=== PATIENT | male | born 1935 | race Two or more races ===

== ENCOUNTER 2016-08-15 10:07 | Emergency (ER) | payer OTHER ==
--- NOTE | 2016-08-15 10:32 | CPEKG ---
Heart Rate: 54 RR Interval: 1111 P-R Interval: 208 QRSD Interval: 90 QT Interval: 448 QTC Interval: 425 P [place]: 34 QRS [place]: -37 T Wave [place]: 9 EKG Severity - OTHERWISE NORMAL ECG - EKG Impression: SINUS RHYTHM EKG Impression: LEFT AXIS DEVIATION Electronically Signed By: Tono Arellano 16-Aug-2016 13:15:08
--- NOTE | 2016-08-15 10:45 | EDPHY ---
H & P Stated Complaint: right sided pain monday am, right leg pain," pacer issues." Time Seen by Provider: 08/15/16 10:43 - Personal History Current Tetanus/Diphtheria Vaccine: Yes Current Tetanus Diphtheria and Acellular Pertussis (TDAP): Yes Tetanus Vaccine Date: 2005 - Medical/Surgical History Hx Asthma: No Hx Chronic Respiratory Disease: No Hx Diabetes: No Hx Cardiac Disease: Yes Hx Renal Disease: No Hx Cirrhosis: No Hx Alcoholism: No Hx HIV/AIDS: No Hx Splenectomy or Spleen Trauma: No Other PMH: [id number] chamber,prostate ca, minto. [id number], 2015,prostate, tonsilectomy,1 stent and appy, shingles, MRSA on knee 2006., ablation for a fib - Social History Smoking Status: Never smoked Constitutional: Initial Vital Signs Temperature (C) 36.4 C 08/15/16 10:20 Heart Rate 57 L 08/15/16 10:20 Respiratory Rate 16 08/15/16 10:20 Blood Pressure 148/75 H 08/15/16 10:20 O2 Sat (%) 96 08/15/16 10:20 O2 Delivery Mode Room Air Allergies/Adverse Reactions: No Known Allergies Allergy (Verified 01/01/16 14:54) Home Medications: Medication Instructions Recorded NK [No Known Home Meds] 08/15/16 Medical Decision Making - Diagnostics Imaging Results: Imaging Impressions Extremity Venous Study 08/15/16 10:58 Impression: No deep venous thrombosis right leg. Findings and recommendations discussed with Emergency Department physician, Patricio Byrnes MD at 12:15 hour, 08/15/2016. Final report concurs with initial preliminary interpretation. Imaging: Discussed imaging studies w/ call center dispatcher Radiologist ED Course/Re-evaluation: CHIEF COMPLAINT: Right leg and neck swelling HISTORY OF PRESENT ILLNESS: This patient is an 80-year-old male with history of atrial tachycardia with pacemaker in place who presents to the Emergency Department complaining of right calf pain over the past two months, worsening over time. He also reports subjective right-sided neck swelling. He has no additional complaints. Denies dyspnea, chest pain, or fever or chills. No history of DVT or PE. REVIEW OF SYSTEMS: A 10 point review of systems was performed and is negative with the exception of the elements mentioned in the history of present illness. PHYSICAL EXAM: HR 57, BP 148/75, O2 Sat 96%, RR 16. Temp noted at 36.4C. General Appearance: Alert, well hydrated, appropriate, and non-toxic appearing. Head: Atraumatic without scalp tenderness or obvious injury Eyes: Pupils equal, round, reactive to light and accommodation, EOMI, no trauma , no injection. Ears: Clear bilaterally, no perforation, normal landmarks Nose: Atraumatic, no rhinorrhea, clear. Throat: There is no erythema or exudates, no lesions, normal tonsils, mucus membranes moist. Neck: Supple, 2+ carotid upstroke, nontender, no lymphadenopathy. Respiratory: No retractions, no distress, no wheezes, and no accessory muscle use. Lungs are clear to auscultation bilaterally. Cardiovascular: Regular rate and rhythm, no murmurs, rubs, or gallops. Bilateral carotid, radial, dorsalis pedis, and posterior tibial pulses intact. Good capillary refill all extremities. Gastrointestinal: Abdomen is soft, nontender, non-distended, no masses, no rebound, no guarding, no peritoneal signs. Musculoskeletal: Normal active ROM of all extremities, atraumatic. Mildly edematous right calf, soft. Normal appearing left lower leg. Neurological: Alert, appropriate, and interactive. The patient has normal DTRs and non-focal cranial nerves, motor, sensory, and cerebellar exam. Skin: No rashes, good turgor, no nodules on palpation. Past medical history: Atrial tachycardia, pacemaker in place. Dyslipidemia. Most recent cardiac catheterization in 02/2016 revealed minimal CAD with LAD. Prior medical records were reviewed by myself including admission on 02/06/2016 for back/chest pain. Past surgical history: Cardiac catheterizations with stenting. Social history: No tobacco use. Drinks alcohol rarely. DIAGNOSTICS/PROCEDURES/CRITICAL CARE TIME: EKG INTERPRETATION: The 12 lead EKG was interpreted by myself: Sinus rhythm, rate 54; left axis deviation. See hard copy and/or "tracemaster" electronic copy for interpretation. DIFFERENTIAL DIAGNOSIS: The differential diagnosis for the patient's leg swelling included but was not limited to hypoalbuminemia, congestive heart failure, cor pulmonale, venous stasis, trauma, and DVT. MEDICAL DECISION MAKIN-year-old male with cardiac pacemaker in place who presents with complaint of right calf pain and swelling which apparently has been worsening over the past month. He also reports subjective right-sided facial and neck swelling. On exam , is right calf is mildly edematous. There is no perceived swelling to his neck or face. Will proceed with US of the RLE. 1215: US is negative per Dr. Kamar Mehta, radiologist. I discussed ultrasound findings with the patient. He agrees to follow-up with his PCP this week for any persistent complaints. He is given customary return precautions and will be discharged home in good condition. Departure - Departure Disposition: Home, Routine, Self-Care Clinical Impression: Right calf pain Condition: Good Instructions: Leg Edema (ED) Additional Instructions: 1. Follow-up with your primary care provider for further evaluation this week if you continue to experience swelling to your leg or face. 2. Follow-up with Dr. Blanco for evaluation of your pacemaker as we discussed. 3. Return to the Emergency Department immediately with shortness of breath, chest pain, increased pain or swelling, or for other serious concerns. Referrals: Zelda Herrera MD [Primary Care Provider] - As per Instructions Coorna Blanco MD [Medical Doctor] - As per Instructions
[2016-08-15 13:19] VITALS: BP 144/88; PULSE 56; RESP 18; TEMP 98.2; O2SAT 95
== END 2016-08-15 13:19 | disposition home or self-care (01) ==
DX: M79.661 Pain in right lower leg (principal); I25.10 Atherosclerotic heart disease of native coronary artery without angina pectoris; Z85.46 Personal history of malignant neoplasm of prostate; Z95.0 Presence of cardiac pacemaker; Z95.5 Presence of coronary angioplasty implant and graft

== ENCOUNTER → 2016-10-05 | Outpatient (CLI) | payer OTHER | LOC: FIMAGING 07:54 | PROVIDERS: ATTEND Specialist | DX: C61 Malignant neoplasm of prostate (principal) | CPT/HCPCS: 78306; A9503 ==

== ENCOUNTER 2016-10-20 11:36 | Observation (INO) | payer OTHER ==
--- NOTE | 2016-10-19 16:57 | GHP ---
[f rep st] PREOP HISTORY AND PHYSICAL ADMISSION DIAGNOSIS: Prostate cancer with urinary obstruction. HISTORY: This is a gentleman who is 80 years old who underwent CyberKnife treatment for a Grenola score 7 prostate cancer in 2014. His PSA subsequently has gone at a much higher level and presently is at 30.4. He has a bone scan that reveals no metastatic pathology at the present time. He has had an ultrasound that shows the prostate has a volume of 37.9 g, a PSA density of 0.80 , an intravesical lobe and then also possibility of a small bladder neck pathology. At the present time, he is admitted for a TURP. I tried to inform him that I anticipate him having prostate cancer on this assessment because of the elevated PSA and his history, and I have elected not to do any biopsies preoperatively because of his history. Indications, complications, expectations and risks of the surgery have been discussed. I tried to answer his questions to the best of my ability. PAST MEDICAL HISTORY: He has had BPH with hematuria and pacemaker surgically as well as prostate treatment. MEDICATIONS: Include aspirin. ALLERGIES: None. FAMILY HISTORY: Positive for diabetes, hypertension, kidney stones, and prostate cancer. SOCIAL HISTORY: Alcohol consumption is [id number]. A nonsmoker, . Immunizations up to date for influenza and PCV. REVIEW OF SYSTEMS: Negative for cardiac, respiratory, GI, and endocrine. PHYSICAL EXAMINATION: VITAL SIGNS: Stable. CHEST: Clear. HEART: Regular rate and rhythm. ABDOMEN: Normal. No organomegaly, rebound, or guarding. EXTREMITIES: Lower extremities are normal. : His prostate is enlarged and firm, more on the right than the left. LYMPHATICS: He has no lymphadenopathy. NEUROLOGIC: Oriented x3. PSA values have been at 20 in 2012, nadired to 2.3 in April 2014, and in September 2016, has been up to 30.4. At the present time, he is admitted for TUR of the prostate. PLAN: Indications and complications and all have been discussed. Written and verbal consent was obtained. He will be admitted for the above procedure. Copy requested to: Dr. Felipe Rodriguez #: [id number]/MODL MTDD
--- NOTE | 2016-10-20 11:34 | PDHPUP ---
History & Physical Update H&P update statement: This history and physical update is based on an assessment of the patient which was completed after admission or registration (within 24 hours), but prior to the surgery/procedure. H&P update: H&P reviewed & patient examined, no change in patient's condition since H&P completed
[~2016-10-20 11:36] MED LIST: ceFAZolin 2 GM/DEXTROSE 100 ML IV ONE
[2016-10-20] MEDS ORDERED: LR 1,000 ML IV ONE (12:01)
--- NOTE | 2016-10-20 12:47 | GCON ---
[f rep st] CONSULTATION CARDIOVASCULAR CONSULTATION DATE OF CONSULTATION: 10/20/2016 REFERRING PHYSICIAN: Dr. Joseph The patient is a gentleman, who has known coronary disease with myocardial infarctions x2 in 1987. He had a stent subsequently in his left anterior descending artery. He, in 2014, received a dual pacemaker and the data is in the chart about his pacemaker. It has been followed in clinic and has been doing fine. He had a coronary angiogram on 02/08/2016, which showed the left main coronary was normal. The LAD had intimal disease present. His mid stent had excellent flow, with no obstruction. Circumflex was showing intimal disease. Right coronary artery had mild irregularities and 10% stenosis. He has done very well. He is not having chest pain, jaw pain, arm pain. He has no orthopnea, PND, dyspnea exertion. No pleuritic chest pain. He has no fever, chills, or cough. He is not having syncope or near syncope. He is not having hot swollen joints or major rashes. He is having no history at this time , of cough, pleuritic chest pain, hemoptysis. No hematemesis. He is active at his house. He is able to do everything he wants to do, and has no other issues. CARDIAC RISK FACTORS: He has hyperlipidemia. He has hypertension. He has no family history of premature coronary artery disease. He has no diabetes mellitus. He has no history of hyperuricemia or obesity. PHYSICAL EXAM: VITAL SIGNS: Blood pressure has been in the range of 135/80. Heart rate is 65 and regular. Respiratory rate is 12. He is afebrile. HEENT: Pupils are equal and reactive. Mucous membranes and mouth moist. NECK: Supple. CARDIOVASCULAR: S1, S2. Soft systolic murmur, left sternal border. No diastolic murmur. No S3, no S4, no rubs. He has a pacemaker in place, and the pocket is not causing any issues. PULMONARY: Reveals rhonchi. No rales, wheezing, or dullness. CVA: No tenderness. ABDOMEN: Soft and nontender, without masses. EXTREMITIES: Show no edema or inflammation, or ulceration. ASSESSMENT AND PLAN: 1. Coronary disease. 2. Pacemaker. 3. Dyslipidemia. 4. Hypertension. The patient is going to have surgery with Dr. Joseph today. The patient is having absolutely no cardiovascular symptoms. He has no angina. He has no diminution of exercise tolerance. He has no orthopnea, PND, dyspnea on exertion. He has no weight gain. He has no edema. He is not having neurologic complaints or palpitations. He is not lightheaded, dizzy, having focal neurologic problems. I have offered him preoperative evaluation with a stress imaging study and/or an echocardiographic study. He does not want to proceed with those tests. I do not see any indication he needs those tests done at this time. I think he will do very well with surgery. However, he is being done at increased risk of surgery because of his coronary disease, and he is aware of that. He and his and I have specifically reviewed the risk of stroke, , myocardial infarction, and he is well aware , as is his , that any of those outcomes are possible with today's procedure , and he accepts those risks and wants to proceed. I think he will do very well , but I know that he understands the options and he wants to go ahead at this time, so I am clearing him for surgery. I think he will do superbly. He is coming into surgery with excellent cardiovascular strength and condition. His labs have been recently checked, and his blood sugar was elevated on a random blood sugar of 120. His creatinine is excellent. Liver function tests are excellent. His lipids are a little high at 213 total cholesterol, and an LDL of 147. He and I have reviewed his lipid management in the past and we will do so again. He is going to see me after his surgery. I have answered all his questions, and I have written a note to clear him for surgery. /[id number]/MODL MTDD
--- NOTE | 2016-10-20 13:10 | PDANEPAE ---
ANE History of Present Illness 80 year old male w/ PMHx of A.fib s/p ablation, pacemaker (replaced in 2016), OR (1987; cardiac stent in 2007), recent reports of atrial tachycardia w/ RVR ( provided cardiac clearance today by Dr. Blanco) and prostate cancer / BPH presents for TURP. ANE Past Medical History - Cardiovascular History Hx Hypertension: Yes Hx Arrhythmias: Yes Hx Chest Pain: No Hx Coronary Artery / Peripheral Vascular Disease: Yes Hx CHF / Valvular Disease: No Hx Palpitations: No Cardiovascular History Comment: OR 1987. STENT 11/2007 - Pulmonary History Hx COPD: No Hx Asthma/Reactive Airway Disease: No Hx Recent Upper Respiratory Infection: No Hx Oxygen in Use at Home: No Hx Sleep Apnea: Yes Sleep Apnea Screening Result - Last Documented: Positive Pulmonary History Comment: PREV TESTING SHOWED LOW OXYGEN SATS USED HS OXYGEN FOR AWHILE. NOT USED PAST 3 YRS. - Neurologic History Hx Cerebrovascular Accident: No Hx Seizures: No Hx Dementia: No - Endocrine History Hx Diabetes: No Hypothyroid: No Hyperthyroid: No Obesity: mild - Renal History Hx Renal Disorders: Yes Renal History Comment: BPH - Liver History Hx Hepatic Disorders: No - Neurological & Psychiatric Hx Hx Neurological and Psychiatric Disorders: No - Cancer History Hx Cancer: Yes Cancer History Comment: PROSTATE CYBERKNIFE TREATMENT - Congenital Disorder History Hx Congenital Disorders: No - GI History GERD: mild Hx Gastrointestinal Disorders: No - Other Health History Other Health History: CERVICAL DD - Chronic Pain History Chronic Pain: No - Surgical History Prior Surgeries: PACEMAKER REPLACEMENT 2015. PACEMAKER 2007. ABLATION FOR A- FIB. APPENDECTOMY. TONSILLECTOMY. 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: 07/27/2010 ANE Patient History - Allergies Allergies/Adverse Reactions: No Known Allergies Allergy (Verified 01/01/16 14:54) - Home Medications Home medications: home medication list seen and reviewed Home Medications: RX: Herbals/Supplements -Info Only 1 ea PO DAILY 10/12/16 [Last Taken 10/19/16 08:00] - NPO status NPO Since - Liquids (Date): 10/20/16 NPO Since - Liquids (Time): 11:20 NPO Since - Solids (Date): 10/08/16 NPO Since - Solids (Time): 18:30 - Anes Hx Anes Hx: no prior problems - Smoking Hx Smoking Status: Never smoked - Alcohol Use Alcohol Use: Rarely - Family Anes Hx Family Anes Hx: neg - N/A ANE Labs/Vital Signs - Vital Signs Vital Signs: reviewed preoperatively; see RN documention for details Blood Pressure: 128/81 Heart Rate: 71 Respiratory Rate: 16 O2 Sat (%): 94 Height: 167.64 cm Weight: 73.482 kg ANE Physical Exam - Airway Neck exam: FROM Mallampati Score: Class 2 Mouth exam: dentures - Pulmonary Pulmonary: no respiratory distress - Cardiovascular Cardiovascular: regular rate and rhythym - ASA Status ASA Status: III ANE Anesthesia Plan Anesthesia Plan: GA w LMA
[2016-10-20] MEDS ORDERED: SUCCINYLCHOLINE CHLORIDE*ANESTHESIA ONLY*200 MG/10 ML SYR IVP ONE (13:16)
[2016-10-20] MEDS ORDERED: PROPOFOL 200 MG/20 ML VIAL ONE (13:17)
[2016-10-20] MEDS ORDERED: fentaNYL 100 MCG/2 ML INJ ONE (13:17)
[2016-10-20] MEDS ORDERED: LIDOCAINE 2% 5 ML SDV ONE (13:17)
[2016-10-20] MEDS ORDERED: LIDOCAINE 2% JELLY 20 ML (UROJECT) ONE (13:19)
[2016-10-20] MEDS ORDERED: DEXAMETHASONE 4 MG/ML VIAL ONE (13:26)
[2016-10-20] MEDS ORDERED: ONDANSETRON 4 MG/2 ML VIAL ONE (13:26)
[2016-10-20] MEDS ORDERED: ROCURONIUM 50 MG/5 ML VIAL ONE (13:53)
[2016-10-20] MEDS ORDERED: ONDANSETRON 4 MG/2 ML VIAL IVP PRN ×2 (14:31→14:40)
[2016-10-20] MEDS ORDERED: OPIUM/BELLADONNA ALKALO SUPP PR PRN (14:31)
[2016-10-20] MEDS ORDERED: oxyCODONE IR 5 MG TAB PO PRN (14:31)
[2016-10-20] MEDS ORDERED: ONDANSETRON DISINTEGRATING 4 MG TAB PO PRN (14:31)
[2016-10-20] MEDS ORDERED: HYDROCODONE/APAP 5/325 TAB PO PRN ×2 (14:31→14:40)
[2016-10-20] MEDS ORDERED: ACETAMINOPHEN 325 MG TAB PO PRN (14:31)
--- NOTE | 2016-10-20 14:31 | POSTOPPROG ---
Post Op Note Date of Operation: 10/20/16 Surgeon: Quinn Joseph Anesthesia: GET(General Endotracheal) Pre-op Diagnosis: bph/ prostate cancer Inf/Abcess present in the surg proc area at time of surgery?: No Specimen(s): sent-----dictated
[2016-10-20] MEDS ORDERED: ACETAMINOPHEN 500 MG TAB PO PRN (14:40)
[2016-10-20] MEDS ORDERED: NALOXONE HCL 0.4 MG/ML INJ IVP PRN (14:40)
[2016-10-20] MEDS ORDERED: LR 500 ML IV PRN (14:40)
[2016-10-20] MEDS ORDERED: fentaNYL 100 MCG/2 ML INJ IVP PRN (14:40)
[2016-10-20] MEDS ORDERED: D5W 1/2 NS W/ 20 KCl/L 1,000 ML IV SCH (14:45)
--- NOTE | 2016-10-20 15:33 | POSTANESTH ---
Post Anesthetic Evaluation Cardiovascular Status: Normal, Stable Respiratory Status: Normal, Stable Level of Consciousness/Mental Status: Can Participate in Eval Pain Control: Adequate, Prn Tx Ordered Nausea/Vomiting Control: Adequate, Prn Tx Ordered Complications Possibly Related to Anesthesia: None Noted (Patient pacemaker interogated in PACU and confirmed to be working appropriately and remains in previously programed mode.)
--- NOTE | 2016-10-20 17:13 | GOP ---
[f rep st] OPERATIVE REPORT DATE OF OPERATION: 10/20/2016 SURGEON: Quinn Joseph MD ANESTHESIOLOGIST: Tim Ford MD. PREOPERATIVE DIAGNOSIS: Benign prostatic hyperplasia with urinary obstruction, retention, and prostate cancer. POSTOPERATIVE DIAGNOSIS: PROCEDURE PERFORMED: Transurethral resection of the prostate. FINDINGS: DESCRIPTION OF PROCEDURE: Gentleman underwent general anesthesia, prepped and draped in normal sterile fashion in dorsal lithotomy position and, after appropriate time-out, the resectoscope was passed into the bladder under direct vision. He had some fixation of the apex of the prostate to pelvis from his prior CyberKnife and then bladder was obstructed with +3 to 4 trabeculation and outlet was obstructed. He had an intravesical lobe of the prostate and nodularity suggestive of malignancy pathology at that, so intravesical lobe was taken down originally and then the right lateral lobe and right portion of the posterior lobe resected, left lateral lobe and left portion of the posterior lobe was resected. The bladder was Ellik'd free of all chips and clots. Visualization revealed no residual chips or clots. The resection was done with the bipolar loop and then electrocauterization for hemostasis provided with the bipolar button, and at the end of the procedure the ureteral orifices were normal. Bladder had no trauma identified. Verumontanum preserved. External sphincter approximated at the midline symmetrically. His bladder was filled with fluid and with a coude maneuver had an excellent flow of clear urine. Uro- Jet placed in the urethra and a 22 three-way catheter passed over catheter guide , 60 cc balloon inflated. Traction placed and irrigated clear. He will be admitted overnight for postoperative care. Pathology was sent, and no complications encountered. Estimated blood loss less than 100 mL. /[id number]/MODL MTDD
[2016-10-21 04:23] VITALS: RESP 16
[2016-10-21 08:37] VITALS: TEMP 97.7
[2016-10-21] MEDS ORDERED: Herbals/Supplements -Info Only PO SCH (09:00)
[2016-10-21 12:46] VITALS: BP 157/73; PULSE 58; O2SAT 93
[2016-10-21] MEDS ORDERED: DOCUSATE SODIUM 100 MG CAP PO ONE (15:00)
[2016-10-21] MEDS ORDERED: SENNOSIDES 1 TAB PO ONE (15:00)
--- NOTE | 2016-10-21 19:12 | GDS ---
[f rep st] DISCHARGE SUMMARY PREOPERATIVE AND POSTOPERATIVE DIAGNOSIS: Benign prostatic hypertrophy with obstruction. BRIEF HISTORY OF PRESENT ILLNESS AND HOSPITAL COURSE: This is an 80-year-old patient, well known to Dr. Joseph's practice. He was evaluated in the office found to have obstruction and lower urinary tr act symptoms. After a full evaluation and discussion of the options, he elected to undergo a transu rethral resection of the prostate, which he underwent without difficulty. The patient was also seen by Dr. Blanco while in the hospital given his cardiac history. Note can be viewed for further refe rence. The patient is being discharged home in good condition. Ample time was spent answering wilbert ent questions, discussing expected symptoms and what to be concerned about after surgery. DISCHARGE INSTRUCTIONS: He is to follow up with us in 3 weeks. /[id number]/MODL
== END 2016-10-21 15:54 | disposition home or self-care (01) ==
LOC: INTOOBSV 11:36 → F1N 11:36
PROVIDERS: ADMIT Specialist; ATTEND Specialist
PROC: 0VB08ZZ Excision of Prostate, Via Natural or Artificial Opening Endoscopic (ICD-10-PCS; principal; 2016-10-20 12:45)
DX: C61 Malignant neoplasm of prostate (principal); N40.2 Nodular prostate without lower urinary tract symptoms; I10 Essential (primary) hypertension; E78.5 Hyperlipidemia, unspecified; Z95.0 Presence of cardiac pacemaker
CPT/HCPCS: 52601; G0378; J0330; J0690; J1100; J2405; J2704; J3010